=== PATIENT | female | born 1990 | race African-American/Black ===

== ENCOUNTER 2024-04-25 12:02 | Emergency (ER) | payer MEDICAID, MEDICARE ==
[2024-04-25] MEDS ORDERED: Ketorolac Tromethamine 30 MG (1 mL) VIAL ONE (12:33)
== END 2024-04-25 12:40 | disposition home or self-care (01) ==
LOC: ERS 12:02
DX: H60.93 Unspecified otitis externa, bilateral (principal); H73.93 Unspecified disorder of tympanic membrane, bilateral
CPT/HCPCS: 96372; 99282; J1885